=== PATIENT | male | born 1960 | race Caucasian/White ===

== ENCOUNTER → 2017-08-15 | Outpatient (CLI) | payer BC ==
--- NOTE | 2017-08-15 08:50 | DIAGNOSTIC IMAGING REPORT ---
MRI THE RIGHT SHOULDER NO CONTRAST CLINICAL HISTORY: Right shoulder pain COMPARISON STUDY: Outside conventional radiograph dated 06/05/2017 FINDINGS: Imaging was performed in the axial, sagittal, and coronal planes. There are no areas of pathologic marrow replacement. There is no evidence of muscular atrophy. There is evidence for supraspinatus tendinopathy with a small partial-thickness tear. There is no evidence for a full-thickness tear. Degenerative changes are present within the acromioclavicular joint. There is a very subtle longitudinal split tear of the bicipital tendon. There is a tear the anterior glenoid labrum with associated para labral cyst. IMPRESSION: 1. Tear of the anterior glenoid labrum with associated para labral cyst 2. Supraspinatus tendinopathy with a small partial-thickness tear 3. Suspected subtle small longitudinal split tear of the bicipital tendon Electronically signed by: Chad Sweet M.D. 08/15/2017 8:48 AM Dictated Date/Time: 08/15/2017 8:41 AM
== END | disposition home or self-care (01) ==
LOC: C.MRIBC 07:49
PROVIDERS: ATTEND Orthopaedic Surgery
DX: M75.101 Unspecified rotator cuff tear or rupture of right shoulder, not specified as traumatic (principal); S43.491A Other sprain of right shoulder joint, initial encounter; X58.XXXA Exposure to other specified factors, initial encounter